=== PATIENT | male | born 2000 | race Caucasian/White ===

== ENCOUNTER 2025-08-15 09:11 | Emergency (ER) | payer OTHER ==
[2025-08-15] MEDS ORDERED: Lidocaine 1% w/Epinephrine 1:200K 30 ML VIAL ONE (09:57)
== END 2025-08-15 10:49 | disposition home or self-care (01) ==
LOC: CSHERS 09:11
DX: L02.412 Cutaneous abscess of left axilla (principal); Z87.891 Personal history of nicotine dependence
CPT/HCPCS: 10060